=== PATIENT | female | born 1965 ===

== ENCOUNTER 2018-05-01 23:28 | Emergency (ER) | payer OTHER ==
[2018-05-02 02:15] LABS: Basophils % (Auto) 0.8 % (0.0-1.8); Eosinophils # (Auto) 0.4 K/mm3 (0.0-0.4); Eosinophils % (Auto) 7.8 % (0.0-4.3); Hematocrit 40.3 % (30.3-42.9); Hemoglobin 13.3 gm/dl (10.1-14.3); Lymphocytes # (Auto) 2.5 K/mm3 (1.2-5.4); Lymphocytes % (Auto) 48.4 % (13.4-35.0); Mean Corpuscular HGB Conc 33 % (30-34); Mean Corpuscular Hemoglobin 27 pg (28-32); Mean Corpuscular Volume 83 fl (79-97); Monocytes # (Auto) 0.3 K/mm3 (0.0-0.8); Monocytes % (Auto) 6.8 % (0.0-7.3); Platelet Count 161 K/mm3 (140-440); Red Blood Count 4.84 M/mm3 (3.65-5.03); Red Cell Distribution Width 13.5 % (13.2-15.2)
[2018-05-02 02:21] LABS: Bilirubin,Urine NEG (Negative); Blood,Urine NEG (Negative); Color,Urine Yellow (Yellow); Mucus,Urine 1+ /HPF; Protein,Urine <15 mg/dL mg/dL (Negative); Urobilinogen,Urine < 2.0 mg/dL (<2.0)
[2018-05-02 02:36] LABS: Alanine Aminotransferase 82 units/L (7-56); Albumin 4.7 g/dL (3.9-5); BUN/Creatinine Ratio 18; Blood Urea Nitrogen 14 mg/dL (7-17); Hemolysis Index 9
[2018-05-02] MEDS ORDERED: MORPHINE IV PRN (04:04)
[2018-05-02] MEDS ORDERED: ZOFRAN IV ONE (04:05)
[2018-05-02 04:53] VITALS: BP 137/75
--- NOTE | 2018-05-02 05:48 | Cat Scan Report ---
FINAL REPORT PROCEDURE: CT ABDOMEN PELVIS W CON TECHNIQUE: Computerized axial tomography of the abdomen and pelvis was performed after the IV injection of iodinated nonionic contrast. HISTORY: left flank, LLQ pain, hx ulcerative colitis COMPARISON: No prior studies are available for comparison. FINDINGS: Visualized lower thorax: No significant abnormality. Liver: Normal size and attenuation. Spleen: Normal size and attenuation. Gallbladder and biliary system: The gallbladder is absent.. Pancreas: Normal. Adrenals: Normal. Kidneys: Normal. GI tract: No obstruction. No ileus or enteritis. The cecum, appendix and colon are normal. There is significant fecal debris throughout the colon.. Lymph nodes and mesentery: Normal. Vasculature: Normal. Bladder: Normal. Reproductive organs: Normal. Peritoneum: No free fluid. Musculoskeletal structures: No significant abnormality. Other: None. IMPRESSION: There is no evidence of intestinal or urinary tract obstruction. No ileus or enteritis. The appendix is normal. Significant fecal debris throughout the colon, constipation is suspected. There is previous cholecystectomy.
--- NOTE | 2018-05-02 05:51 | Emergency Department Report ---
ED Abdominal Pain HPI - General Chief Complaint: Neuro Symptoms/Deficit Stated Complaint: BACK &CHEST PAIN, NUMBNESS,COLD SWEAT Time Seen by Provider: 05/02/18 03:55 Source: patient Mode of arrival: Ambulatory Limitations: No Limitations - History of Present Illness Initial Comments: Patient developed a significant back pain approximately 6-8 hours prior to arrival, reporting no injury, no sudden movements, no pop and no spasm, but there is discomfort that radiates toward the left lower quadrant, and some down into the buttock as well. She's also had mild additional symptoms, including some pain radiating up into her back and chest, and a sensation of thrill and some chilling, but no fever, no diaphoresis. She has not had any nausea or vomiting, no diarrhea, no ill contacts. She does not have any urinary symptoms , and no prior history of kidney stones. Past medical history significant for ulcerative colitis, but she is not any symptoms typical of ulcerative colitis, particularly with loose bowel movements , or abdominal cramping, simply persistent discomfort of moderate intensity, to be in 5-6 in the anterior abdomen and left flank, and 6-8 in the left mid back and the upper lumbar area. Pain is described as sharp and localized to the left mid back, and mild to moderate and aching with it radiating as previous noted toward the left flank and left lower quadrant, Severity scale (0 -10): 9 - Related Data Home Medications Medication Instructions Recorded Confirmed Last Taken DULoxetine 60 mg PO DAILY 05/02/18 05/02/18 Unknown Omeprazole 20 mg PO DAILY 05/02/18 05/02/18 Unknown clonazePAM 2 mg PO DAILY PRN 05/02/18 05/02/18 Unknown lamoTRIgine 25 mg PO DAILY 05/02/18 05/02/18 Unknown traZODone [Desyrel] 50 mg PO DAILY 05/02/18 05/02/18 Unknown Previous Rx's Medication Instructions Recorded Last Taken Type Cyclobenzaprine HCl [Flexeril 5 MG 5 mg PO TID #21 tab 05/02/18 Unknown Rx TAB] HYDROcodone/APAP 5-325 [[place] 1 - 2 each PO Q6HR PRN #30 tablet 05/02/18 Unknown Rx 5/325] Allergies Allergy/AdvReac Type Severity Reaction Status Date / Time No Known Allergies Allergy Unverified 05/02/18 01:31 ED Review of Systems ROS: Stated complaint: BACK &CHEST PAIN, NUMBNESS,COLD SWEAT Other details as noted in HPI Comment: All other systems reviewed and negative Constitutional: see HPI, chills. denies: diaphoresis, fever, malaise, weakness ENT: throat pain Respiratory: denies: cough, orthopnea Cardiovascular: chest pain (mild). denies: palpitations Endocrine: no symptoms reported Gastrointestinal: abdominal pain (left lower quadrant, aching). denies: nausea , vomiting, diarrhea, constipation Genitourinary: denies: urgency, dysuria, frequency Musculoskeletal: back pain (sharp, localized left parasternal upper lumbar area) Skin: denies: rash, lesions Neurological: denies: headache, weakness, paresthesias Psychiatric: denies: anxiety, depression Hematological/Lymphatic: denies: easy bleeding, easy bruising ED Past Medical Hx - Past Medical History Hx GERD: Yes Hx Psychiatric Treatment: Yes (Anxiety, Depression) Additional medical history: Ulcerative Colitis, High Cholesterol - Surgical History Additional Surgical History: Bilateral Lymphadenectomy Axilla - Social History Smoking Status: Never Smoker Substance Use Type: None - Medications Home Medications: Home Medications Medication Instructions Recorded Confirmed Last Taken Type Cyclobenzaprine HCl [Flexeril 5 MG 5 mg PO TID #21 tab 05/02/18 Unknown Rx TAB] DULoxetine 60 mg PO DAILY 05/02/18 05/02/18 Unknown History HYDROcodone/APAP 5-325 [[place] 1 - 2 each PO Q6HR PRN #30 tablet 05/02/18 Unknown Rx 5/325] Omeprazole 20 mg PO DAILY 05/02/18 05/02/18 Unknown History clonazePAM 2 mg PO DAILY PRN 05/02/18 05/02/18 Unknown History lamoTRIgine 25 mg PO DAILY 05/02/18 05/02/18 Unknown History traZODone [Desyrel] 50 mg PO DAILY 05/02/18 05/02/18 Unknown History ED Physical Exam - General Limitations: No Limitations General appearance: alert, in distress (moderate discomfort, somewhat aggravated with turning on examination in left lumbar area.) - Head Head exam: Present: atraumatic, normocephalic - Eye Eye exam: Present: PERRL, EOMI - ENT ENT exam: Present: normal exam, mucous membranes moist - Neck Neck exam: Present: normal inspection, full ROM. Absent: tenderness - Respiratory Respiratory exam: Present: normal lung sounds bilaterally. Absent: wheezes, rales, rhonchi, chest wall tenderness - Cardiovascular Cardiovascular Exam: Present: regular rate, normal heart sounds - GI/Abdominal GI/Abdominal exam: Present: soft, tenderness (minimal tenderness left lower quadrant), normal bowel sounds. Absent: distended, guarding, rebound - Rectal Rectal exam: Present: deferred - Back Exam Back exam: Present: tenderness, paraspinal tenderness (localized left upper lumbar). Absent: vertebral tenderness - Neurological Exam Neurological exam: Present: alert, oriented X3, CN II-XII intact. Absent: motor sensory deficit - Psychiatric Psychiatric exam: Present: normal affect, normal mood - Skin Skin exam: Present: warm, dry. Absent: diaphoretic, petechiae, pallor, ecchymosis ED Course Vital Signs 05/01/18 05/02/18 05/02/18 23:48 01:17 01:58 Temperature 36.9 C 37.0 C Pulse Rate 53 L 66 Respiratory 14 16 Rate Blood Pressure 116/83 130/81 Blood Pressure [Left] O2 Sat by Pulse 99 100 97 Oximetry 05/02/18 05/02/18 05/02/18 02:00 02:05 02:16 Temperature 36.5 C Pulse Rate 50 L Respiratory 18 Rate Blood Pressure 132/74 130/80 Blood Pressure 130/80 [Left] O2 Sat by Pulse 100 100 99 Oximetry 05/02/18 05/02/18 05/02/18 02:30 02:46 03:00 Temperature Pulse Rate Respiratory Rate Blood Pressure 106/56 132/74 108/66 Blood Pressure [Left] O2 Sat by Pulse 100 97 99 Oximetry 05/02/18 05/02/18 05/02/18 03:15 03:30 03:46 Temperature Pulse Rate Respiratory Rate Blood Pressure 108/66 118/66 118/66 Blood Pressure [Left] O2 Sat by Pulse 95 100 100 Oximetry 05/02/18 05/02/18 05/02/18 04:00 04:16 04:40 Temperature Pulse Rate Respiratory Rate Blood Pressure 127/65 127/65 137/75 Blood Pressure [Left] O2 Sat by Pulse 96 92 99 Oximetry 05/02/18 05/02/18 04:52 05:00 Temperature Pulse Rate Respiratory 18 Rate Blood Pressure 137/75 Blood Pressure [Left] O2 Sat by Pulse 97 Oximetry - Reevaluation(s) Reevaluation #1: 05/02/18 05:52 Patient significantly improved after medication for discomfort with morphine, feels much more comfortable. Lab results discussed ED Medical Decision Making - Lab Data Result diagrams: 05/02/18 01:43 05/02/18 01:43 - EKG Data -: EKG Interpreted by Me EKG shows normal: sinus rhythm (bradycardia), axis, intervals, QRS complexes, ST -T waves (nonspecific ST segment, anterior septal leads) Rate: bradycardia - EKG Data When compared to previous EKG there are: previous EKG unavailable - Medical Decision Making Patient has sharply localized discomfort in the left mid back, with some discomfort radiating into the left lower quadrant, some left buttock discomfort , which appears to be musculoskeletal, with normal laboratory evaluation, no signs of inflammation or infection, normal urinalysis, and negative CT scan. She'll be treated symptomatically, with recommendation for rest, in 2-3 day follow-up with her physician. - Differential Diagnosis musculoskeletal strain, ulcerative colitis, diverticulitis, renal colic Critical care attestation.: If time is entered above; I have spent that time in minutes in the direct care of this critically ill patient, excluding procedure time. ED Disposition Clinical Impression: Back pain, lumbosacral Disposition: - TO HOME OR SELFCARE Is pt being admited?: No Does the pt Need Aspirin: No Condition: Stable Instructions: Acute Low Back Pain (ED) Prescriptions: Cyclobenzaprine HCl [Flexeril 5 MG TAB] 5 mg PO TID #21 tab HYDROcodone/APAP 5-325 [[place] 5/325] 1 - 2 each PO Q6HR PRN #30 tablet PRN Reason: Pain Referrals: PRIMARY CARE,MD [Primary Care Provider] - 3-5 Days Forms: Work/School Release Form(ED) Time of Disposition: 05:54
== END 2018-05-02 06:18 | disposition home or self-care (01) ==
LOC: ED 23:28
DX: M54.5 Low back pain (principal); R10.32 Left lower quadrant pain; K21.9 Gastro-esophageal reflux disease without esophagitis; F41.9 Anxiety disorder, unspecified; F32.9 Major depressive disorder, single episode, unspecified; E78.00 Pure hypercholesterolemia, unspecified; Z90.89 Acquired absence of other organs
CPT/HCPCS: 36415; 74177; 80053; 81001; 85025; 93005; 93010; 96374; 96375; 99284; J2270; J2405; Q9967